=== PATIENT | male | born 1975 | race African-American/Black ===

== ENCOUNTER 2018-10-31 02:53 | Emergency (ER) | payer SELFPAY ==
[~2018-10-31] VITALS: Ht 185.4 cm; Wt 109.6 kg
--- NOTE | 2018-10-31 03:01 | NUR ---
Pt called for triage and in bathroom. This RN checked on pt and pt ok in br. informed need for triage/ekg.
[2018-10-31] MEDS ORDERED: ASPIRIN 81 MG TABLET CHEW PO ONE (03:30)
[2018-10-31] MEDS ORDERED: ASPIRIN 81 MG TABLET CHEW ONE (03:34)
--- NOTE | 2018-10-31 03:41 | NUR ---
pt medicated per mar. pt resting in [facility] at this time; gerin. pt has call light within reach at this time.
[2018-10-31 03:43] LABS: ALANINE AMINOTRANSFERASE 47 U/L (12-78); ANION GAP 6 mmol/L (5-15); CALCIUM 8.9 mg/dL (8.5-10.1); CHLORIDE 108 mmol/L (98-107); CREATININE 1.27 mg/dL (0.7-1.3)
[2018-10-31 03:47] LABS: ALKALINE PHOSPHATASE 90 U/L (45-117); BILIRUBIN,TOTAL 0.2 mg/dL (0.2-1.0); TOTAL PROTEIN 7.6 g/dL (6.4-8.2); TROPONIN I < 0.015 ng/mL (0.000-0.045)
[2018-10-31 03:59] LABS: BASOPHILS # (AUTO) 0.01 x10^3/uL (0-0.1); BASOPHILS % (AUTO) 0 % (0-1); EOSINOPHILS # (AUTO) 0.21 x10^3/uL (0-0.4); EOSINOPHILS % (AUTO) 3 % (1-7); LYMPHOCYTES % (AUTO) 37 % (22-44); MD NO; MEAN CORPUSCULAR HEMOGLOBIN 29.9 pg (27.5-34.5); MEAN CORPUSCULAR VOLUME 87.9 fL (81-97); MEAN PLATELET VOLUME 8.3 fL (7.4-10.4); MONOCYTES # (AUTO) 0.59 x10^3/uL (0.2-0.8); MONOCYTES % (AUTO) 7 % (2-9); NEUTROPHILS # (AUTO) 4.22 x10^3/uL (1.8-6.8); NEUTROPHILS % (AUTO) 53 % (42-75); PLATELET COUNT 248 x10^3/uL (130-400); RED BLOOD COUNT 5.15 x10^6/uL (4.38-5.82); RED CELL DISTRIBUTION WIDTH 14.4 % (9.4-14.8)
[2018-10-31 04:42] VITALS: BP 144/71
--- NOTE | 2018-10-31 04:45 | NUR ---
PT D/C WITH D/C SUMMARY AND F/U INSTRUCTIONS. PT VERBALIZES UNDERSTANDING OF NEED FOR OP F/U WITH PCP/ PT DENIES ANY OTHER NEEDS PERTAINING TO THIS VISIT AND AMBULATES TO REGISTRATION DESK WITH STEADY GAIT FOR D/C HOME. VSS AND UPDATED IN EMR.
== END 2018-10-31 04:50 | disposition home or self-care (01) ==
LOC: ED 04:35
DX: G47.33 Obstructive sleep apnea (adult) (pediatric) (principal)
CPT/HCPCS: 36415; 71046; 80053; 83880; 84484; 85025; 93005; 99284